=== PATIENT | female | born 1965 | race Caucasian/White ===

== ENCOUNTER 2020-07-22 20:05 | Inpatient (IN) | payer MEDICARE, MEDICAID ==
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
[2020-07-22] MEDS ORDERED: LORazepam 1 MG TAB PO STA (22:06)
[2020-07-22 22:21] LABS: Amphetamine Screen,Urine Not Detected (NotDetected); Barbiturate Screen,Urine Not Detected (NotDetected); Benzodiazepines Screen,Urine Detected (NotDetected); Cocaine Screen,Urine Not Detected (NotDetected); Methadone Screen, Urine Not Detected (NotDetected); Opiate Screen,Urine Detected (NotDetected); Oxycodone Screen, Urine Not Detected (NotDetected); Phencyclidine Screen,Urine Not Detected (NotDetected); Tricyclic Antidepressant,Urine Not Detected (NotDetected); Urn Cannabinoid Scrn Not Detected (NotDetected)
--- NOTE | 2020-07-23 01:01 | XR ---
EXAM: XR Right Wrist Complete, 3 or More Views CLINICAL HISTORY: ITS.REASON XR Reason: injury TECHNIQUE: Frontal, lateral and oblique views of the right wrist. COMPARISON: No relevant prior studies available. FINDINGS: Bones/joints: There is a comminuted, impacted fracture of the metaphysis of the distal right radius with 45 dorsal tilt of the articular surface. There is a mildly displaced ulnar styloid process fracture. Mild narrowing and osteophytosis of the first carpometacarpal joint consistent with osteoarthritic changes. No dislocation. Soft tissues: Soft tissue swelling surrounding the wrist. No radiopaque foreign body. IMPRESSION: 1. There is a comminuted and impacted fracture of the metaphysis of the distal right radius with 45 dorsal tilt of the articular surface. 2. There is a mildly displaced ulnar styloid process fracture.
[2020-07-23] MEDS ORDERED: MAG HYDROX/AL HYDROX/SIMETH 30 ML CUP PO PRN (02:56)
[2020-07-23] MEDS ORDERED: ZIPRASIDONE 20 MG VIAL IM PRN (02:56)
[2020-07-23] MEDS ORDERED: MAGNESIUM HYDROXIDE 2,400 MG/10 ML CUP PO PRN (02:56)
[2020-07-23] MEDS ORDERED: LORazepam 2 MG/ML INJ IM PRN (02:58)
[2020-07-23] MEDS: NICOTINE 14MG/24HR PATCH TRANSDERM SCH (03:42)
[2020-07-23] MEDS: LORazepam 1 MG TAB PO PRN ×2 (03:42→09:42)
[2020-07-23] MEDS: HYDROcodone/APAP 7.5-325MG 1 EACH TAB PO PRN ×3 (04:08→17:34)
--- NOTE | 2020-07-23 05:38 | P.PN ---
Progress Note - Text Progress Note Date: 07/23/20 patient was given ativan and sleeping at this time
[2020-07-23] MEDS: ACETAMINOPHEN TAB 325 MG TAB PO PRN ×2 (06:40→16:16)
[2020-07-23] MEDS: PREGABALIN 75 MG CAP PO SCH ×2 (08:06→21:12)
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
[2020-07-23 16:05] VITALS: BMI 25.4
[2020-07-23] MEDS: clonazePAM 0.5 MG TAB PO SCH ×2 (16:16→21:12)
[2020-07-23] MEDS ORDERED: MIRTAZAPINE 15 MG TAB PO SCH (21:00)
[2020-07-24] MEDS: HYDROcodone/APAP 7.5-325MG 1 EACH TAB PO PRN ×3 (04:34→21:15)
[2020-07-24 07:32] LABS: HCT 51.8 % (34.0-46.0); HGB 16.2 gm/dL (11.4-16.0); MCH 30.6 pg (25.0-35.0); MCHC 31.2 g/dL (31.0-37.0); MCV 98.1 fL (80.0-100.0); Platelet Count 294 k/uL (150-450); RBC 5.29 m/uL (3.80-5.40); RDW 12.5 % (11.5-15.5); WBC 6.5 k/uL (3.8-10.6)
[2020-07-24 07:44] LABS: ALT 16 U/L (4-34); AST 27 U/L (14-36); African American GFR (CKD) >90 (>60 ml/min/1.73 sqM); Albumin 4.3 g/dL (3.5-5.0); Alkaline Phosphatase 62 U/L (38-126); Anion Gap 5 mmol/L; Blood Urea Nitrogen 11 mg/dL (7-17); Calcium 9.7 mg/dL (8.4-10.2); Carbon Dioxide 26 mmol/L (22-30); Chloride 108 mmol/L (98-107); Cholesterol 175 mg/dL (<200); Glucose 100 mg/dL (74-99); HDL Cholesterol 56 mg/dL (40-60); LDL Cholesterol,Calculated 90 mg/dL (0-99); Non-African American GFR(CKD) >90 (>60 ml/min/1.73 sqM); Potassium 4.5 mmol/L (3.5-5.1); Sodium 139 mmol/L (137-145); Total Bilirubin 0.5 mg/dL (0.2-1.3); Triglycerides 145 mg/dL (<150)
[2020-07-24] MEDS ORDERED: hydrOXYzine HCL 25 MG TAB PO PRN (09:28)
[2020-07-24] MEDS: PREGABALIN 75 MG CAP PO SCH ×2 (09:35→21:15)
[2020-07-24] MEDS: NICOTINE 14MG/24HR PATCH TRANSDERM SCH (09:35)
[2020-07-24] MEDS: clonazePAM 0.5 MG TAB PO SCH ×3 (09:35→21:15)
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
[2020-07-24 10:40] LABS: Basophils # (M) 0.07 k/uL (0-0.2); Eosinophils # (M) 0.26 k/uL (0-0.7); Lymphocytes # (M) 2.54 k/uL (1.0-4.8); Monocytes # (M) 0.72 k/uL (0-1.0); Neutrophils # (M) 2.93 k/uL (1.3-7.7); Neutrophils % (M) 45 %; Nucleated Red Blood Cells 0 /100 WBC (0-0); Total Cells Counted 100
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
[2020-07-24 13:48] LABS: Hemoglobin A1C 5.1 % (4.0-6.0)
[2020-07-24] MEDS: ACETAMINOPHEN TAB 325 MG TAB PO PRN (16:42)
[2020-07-24 18:53] LABS: Appearance,Urine Clear (Clear); Bilirubin,Urine Negative (Negative); Blood,Urine Negative (Negative); Color,Urine Colorless; Glucose,Urine (UA) Negative (Negative); Ketones,Urine Negative (Negative); Leukocyte Esterase,Urine Negative (Negative); Nitrite,Urine Negative (Negative); Protein,Urine Negative (Negative); Specific Gravity,Urine 1.003 (1.001-1.035); Urobilinogen,Urine <2.0 mg/dL (<2.0)
[2020-07-24] MEDS: MIRTAZAPINE 15 MG TAB PO SCH (21:15)
[2020-07-24] MEDS: PROPRANOLOL 10 MG TAB PO SCH (22:06)
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
[2020-07-25] MEDS: NICOTINE 14MG/24HR PATCH TRANSDERM SCH (08:49)
[2020-07-25] MEDS: PROPRANOLOL 10 MG TAB PO SCH ×2 (08:49→21:26)
[2020-07-25] MEDS: clonazePAM 0.5 MG TAB PO SCH ×3 (08:49→21:26)
[2020-07-25] MEDS: PREGABALIN 75 MG CAP PO SCH ×2 (08:49→21:26)
[2020-07-25] MEDS: HYDROcodone/APAP 7.5-325MG 1 EACH TAB PO PRN ×2 (08:51→18:20)
[2020-07-25] MEDS: ACETAMINOPHEN TAB 325 MG TAB PO PRN (13:54)
--- NOTE | 2020-07-25 17:08 | PN ---
PROGRESS NOTE DATE OF SERVICE: 07/25/2020 CHIEF COMPLAINT: The patient was admitted on petition due to her being verbally aggressive and showing risk of harm to family. INTERVAL HISTORY: Patient has been doing fair. She had a quiet day yesterday. She comes out in the day area. She wanders about. She does not interact too much with others. She did not attend any groups yesterday. She slept fairly well last night. Today she has been up. She continues the same. It is noted that her p.o. intake has been down. The patient herself expressed concern about that and wondered about getting more Ensure at her meals that she gets 1 Ensure with each meal. She is being followed by the dietitian. When I reviewed her history, the patient was quite adamant about the idea that most everything that had been documented is not accurate. She insisted that she did not pose a threat to family. She noted the information on the petition was inaccurate or false. She talked some about some family struggles that she has had. Her mother apparently just recently. She feels that her sister was not very attentive to mother's needs and that was distressing her. She said that overall she felt her medications were helping. She was hoping to be discharged soon. MENTAL STATUS: Patient sat without restlessness. She gave fair eye contact. She answered questions with brief responses. She did not say a lot. Her affect was blunted. Her mood reserved. She did respond a little to humor. She did not appear to be significantly distressed. There was no clear indication of thought disorder, though she was very disconnected from the history that is documented. She voiced no thoughts of harm. She was oriented to circumstances and surroundings. ASSESSMENT: I will continue the current diagnosis and treatment plan. I will reduce Klonopin to 0.5 mg twice a day. It is noted that Klonopin was initiated for withdrawal symptoms, so I would look towards tapering her off Klonopin altogether. I briefly reviewed medication issues with the patient, though she did not pay too much attention to the conversation. She had no specific complaints related to her medicines and did make a comment that she felt Remeron was helpful at least "some of the time." We will focus on stabilization and discharge planning. MMODL / IJN: [id number] /
[2020-07-25] MEDS: MIRTAZAPINE 15 MG TAB PO SCH (21:26)
[2020-07-26 07:12] VITALS: RESP 16
[2020-07-26] MEDS: clonazePAM 0.5 MG TAB PO SCH (09:18)
[2020-07-26] MEDS: NICOTINE 14MG/24HR PATCH TRANSDERM SCH (09:18)
[2020-07-26] MEDS: PREGABALIN 75 MG CAP PO SCH ×2 (09:18→21:15)
[2020-07-26] MEDS: PROPRANOLOL 10 MG TAB PO SCH (09:19)
[2020-07-26] MEDS: IBUPROFEN 200 MG TAB PO SCH ×4 (11:17→23:19)
[2020-07-26] MEDS: ACETAMINOPHEN TAB 325 MG TAB PO PRN ×2 (13:38→16:26)
--- NOTE | 2020-07-26 14:32 | PN ---
PROGRESS NOTE DATE OF SERVICE: 07/26/2020 CHIEF COMPLAINT: The patient was admitted on petition due to her being verbally aggressive and showing risk of harm to family. INTERVAL HISTORY: The patient has been doing fair. She had a quiet day yesterday. She comes out in the day area. She attended some groups yesterday. She had difficulty engaging in one group. However, in the morning group she was noted to actively participate in the group and was able to share some significant concerns and feelings. She attended group this morning and was noted to be sad and guarded, though appropriate in her interactions. Her CIWA scores have been low with her latest at noon today of 4. When I talked to her today she noted that her mood is improved. She has not had any significant problems with the reduction in Klonopin. She did note some restless legs last evening, though it did not seem to be a significant problem for her. She was having complaints about right wrist pain. She noted numbness in her fingers. She does have some swelling. She was not wanting to wear the brace that was provided. She said it seemed to aggravate the pain. She did use some ice yesterday which she said helped some. She felt that the medications were helping. She feels that the Remeron she took last night does help with sleep. She tolerates her psychotropic medications. MENTAL STATUS: Patient gave fairly good eye contact. She was a little restless. She answered questions appropriately. Her thoughts were clear and coherent. She was somewhat interactive. Her affect was a little constricted though not significantly so. Her mood was reserved, though not down or depressed. She had a friendly manner. She did not appear distressed. There was no indication of thought disorder. She voiced no thoughts of harm. She was oriented and alert. ASSESSMENT: I will continue the current diagnosis and treatment plan. I will start the patient on Advil 200 mg 3 times a day for her right wrist pain and swelling. I will reduce her [place]ley to 5 mg q.6 hours p.r.n. in anticipation of discontinuing Wadley altogether. Klonopin will be reduced to 0.5 mg daily with one dose today and one dose tomorrow, then to be discontinued. I discussed discharge planning issues. We will focus on stabilization and discharge planning. Patient appears to be making progress. MMODL / IJN: [id number] /
[2020-07-26] MEDS ORDERED: HYDROcodone/APAP 7.5-325MG 1 EACH TAB PO SCH (21:00)
[2020-07-26] MEDS: MIRTAZAPINE 15 MG TAB PO SCH (21:15)
[2020-07-26] MEDS: HYDROcodone/APAP 5-325MG 1 EACH TAB PO PRN (21:16)
[2020-07-27] MEDS ORDERED: clonazePAM 0.5 MG TAB PO SCH (09:00)
[2020-07-27] MEDS ORDERED: clonazePAM 0.5 MG TAB PO ONE (09:00)
[2020-07-27] MEDS: IBUPROFEN 200 MG TAB PO SCH (09:44)
[2020-07-27] MEDS: NICOTINE 14MG/24HR PATCH TRANSDERM SCH (09:46)
[2020-07-27] MEDS: PREGABALIN 75 MG CAP PO SCH (09:46)
[2020-07-27] MEDS: HYDROcodone/APAP 5-325MG 1 EACH TAB PO PRN (09:47)
[2020-07-27 09:51] VITALS: BP 134/74; PULSE 104
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
[2020-07-27 14:09] VITALS: TEMP 97.7
== END 2020-07-27 14:28 | disposition home or self-care (01) | DRG 880 ==
LOC: EC 20:05 → 3MHU 07-23 02:37
PROVIDERS: ADMIT Psychiatry & Neurology Psychiatry; ATTEND Psychiatry & Neurology Psychiatry
DX: F41.9 Anxiety disorder, unspecified (principal); F13.239 Sedative, hypnotic or anxiolytic dependence with withdrawal, unspecified; F11.20 Opioid dependence, uncomplicated; F10.10 Alcohol abuse, uncomplicated; I10 Essential (primary) hypertension; G25.81 Restless legs syndrome; G89.29 Other chronic pain; M54.5 Low back pain; S52.501D Unspecified fracture of the lower end of right radius, subsequent encounter for closed fracture with routine healing; S52.611D Displaced fracture of right ulna styloid process, subsequent encounter for closed fracture with routine healing; F17.210 Nicotine dependence, cigarettes, uncomplicated; Z71.6 Tobacco abuse counseling; Z79.899 Other long term (current) drug therapy; V49.9XXD Car occupant (driver) (passenger) injured in unspecified traffic accident, subsequent encounter; Y92.410 Unspecified street and highway as the place of occurrence of the external cause
CPT/HCPCS: 80053; 80061; 80306; 81003; 82075; 83036; 84443; 85025; 99285

== ENCOUNTER 2020-08-17 01:24 | Inpatient (IN) | payer MEDICARE, MEDICAID ==
[2020-08-17 02:15] LABS: Appearance,Urine Clear (Clear); Bilirubin,Urine Negative (Negative); Blood,Urine Negative (Negative); Color,Urine Yellow; Glucose,Urine (UA) Negative (Negative); Ketones,Urine Negative (Negative); Leukocyte Esterase,Urine Negative (Negative); Nitrite,Urine Negative (Negative); PH, Urine 7.5 (5.0-8.0); Protein,Urine Negative (Negative); Specific Gravity,Urine 1.008 (1.001-1.035); Urobilinogen,Urine <2.0 mg/dL (<2.0)
[2020-08-17 02:55] LABS: Amphetamine Screen,Urine Not Detected (NotDetected); Barbiturate Screen,Urine Not Detected (NotDetected); Benzodiazepines Screen,Urine Detected (NotDetected); Cocaine Screen,Urine Not Detected (NotDetected); Methadone Screen, Urine Not Detected (NotDetected); Opiate Screen,Urine Not Detected (NotDetected); Oxycodone Screen, Urine Not Detected (NotDetected); Phencyclidine Screen,Urine Not Detected (NotDetected); Tricyclic Antidepressant,Urine Not Detected (NotDetected); Urn Cannabinoid Scrn Not Detected (NotDetected)
[2020-08-17] MEDS ORDERED: LORazepam 1 MG TAB PO STA (04:51)
[2020-08-17] MEDS ORDERED: MAG HYDROX/AL HYDROX/SIMETH 30 ML CUP PO PRN (06:16)
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
[2020-08-17] MEDS ORDERED: haloperidoL 5 MG TAB PO PRN (09:00)
[2020-08-17] MEDS ORDERED: HALOPERIDOL LACTATE 5 MG/ML 1 ML VIAL IM PRN (09:00)
[2020-08-17] MEDS: NICOTINE 14MG/24HR PATCH TRANSDERM SCH ×2 (09:05→09:52)
[2020-08-17] MEDS: PREGABALIN 100 MG CAP PO SCH ×2 (09:51→20:18)
[2020-08-17] MEDS: LORazepam 1 MG TAB PO PRN ×2 (09:51→15:44)
--- NOTE | 2020-08-17 12:15 | P.HP ---
Psychiatric H&P - . H&P Date: 08/17/20 History & Physical: IDENTIFYING DATA: She is a 55-year-old female admitted to the psychiatric unit involuntarily. A police commissioner completed the Petition describing impariment in sleep and appetite as well as agitation and aggressive behavior. HISTORY OF PRESENT ILLNESS: We discharged her on 07/27/2020 with the diagnoses an unspecified psychotic disorder. According to information obtained by the EPS nurse she was admitted to [facility] the week after discharge. Her and her sister complained that the patient's condition is deteriorating. She is not been compliant with prescribed psychotropic medication and is not caring for self. The police commissioner who brought her to the ED he reported that he had been called to the home several times during by her family because of her aggressive behavior and agitation. She was acutely distressed and unable to provide a coherent history. She perseverated about being anxious and needed a "higher dose" of Valium. She alleged that she had slept for 14 days and has not had anything 8 and several days. She complained that she felt "frightened for my life" during the entire time at [facility]. I wasn't really reach either her or her sister by telephone to obtain collateral information. PAST PSYCHIATRIC HISTORY: This is her 4th admission to our unit. We discharge her on 07/27/2020 with the diagnoses of unspecified anxiety disorder, benzodia zepine use disorder, opiate use disorder, tobacco use disorder and alcohol abuse. Her only psychotropic medication at discharge was Remeron [address] Naik was her outpatient psychiatrist since September 2014 until he left the [facility] practice this year. He consistently diagnosed her with a schizoaffective disorder depressive type, and a generalized anxiety disorder. He treated her consistently with Haldol 5 mg twice a day and Valium in doses ranging from 20-25 mg daily. their last [id number] appointment was in October 2019 and he prescribed Cogentin 1 mg twice a day, Haldol 5 mg twice a day, Celexa 10 mg daily and Valium 5 mg in the morning 5 mg at noon and 5 mg at dinnertime. I reviewed her controlled substance history available through [facility]. Dr. Alex has consistently prescribed Valium on the average of 25 mg per day. She filled her last prescription on 07/06/2020. PAST MEDICAL HISTORY: According to the medical record she has a history of hypertension and chronic back pain. She has been chronically prescribed Lyrica 75 mg twice a day and [place] 7.5-325 3 times a day for the chronic back pain. ALLERGIES: NO KNOWN DRUG ALLERGIES SUBSTANCE USE HISTORY: I was unable to obtain a substance use history during our evaluation today. According to record the family has complained that she drank wine addition taken her prescriptions of [place] and Valium. However the patient minimized her alcohol use. She denied that she had misuse the prescriptions for Valium or no,. FAMILY PSYCHIATRIC/SUBSTANCE USE HISTORY: Her father had a history of alcohol use disorder LEGAL HISTORY: Denied SOCIAL HISTORY: Her parents are . She has 1 sister and 3 living brothers. She lives with her was home she has been for 3 years. She is unemployed and receives Social Security disability. MENTAL STATUS EXAM: She presented as a thin and disheveled 55-year-old female looked much older than her stated age. Her hair was long unkempt. She rocked back and forth in her chair. She had no prominent physical abnormalities. She did not make eye contact and did not appear to be responding to internal stimuli She had a distressed facial expression. She is alert and oriented to person. She was restless but not agitated and displayed no abnormal involuntary movements. Her speech was perseverative, spontaneous, soft and garbled where he was almost inaudible. She was markedly anxious and distressed. She expressed feelings of hopelessness, helplessness and worthlessness but did not was clear suicidal ideation or wishes. She is obsessed over her experiences in the hospital but did not express clear paranoid ideation about her sister or her . Her thinking was very concrete and associations were not fully organized. She was internally preoccupied but did not appear to be responding to internal stimuli. She denied experiencing auditory hallucinations.. STRENGTHS: Good physical health, supportive family, stable housing, stable income WEAKNESSES: Chronic persistent mental illness, poor compliance with treatment IMPRESSION: She is a 55-year-old female admitted to psychiatric unit involuntarily with a marked decline in functioning, agitation, impaired sleep and lack of appetite. This is her third hospitalization in the last 30 days. Family reports that she does not continue with her medications after her discharges. She was restless, unkept, anxious and perseverative. She was focused on obtaining prescriptions for Valium. Her presentation may be related to benzodiazepine withdrawal. however I suspect that she also has a psychotic disorder. Her long-term outpatient psychiatrist had treated for several years for a psychotic disorder. She should best be treated inpatient basis with combination of psychopharmacology and multimodal therapy. PRINCIPLE DIAGNOSIS: Schizoaffective disorder depressed type, generalized anxiety disorder, rule out benzodiazepine use disorder, chronic back pain RECOMMENDATION: Admitted to the psychiatric unit. Proceed with involuntary hospitalization. Consult medicine for initial physical exam and medical history. template layout worker completed a psychosocial assessment coordinate discharge and aftercare. Obtain collateral information from family. Restart Haldol 2 mg twice a day and titrated according to clinical response and tolerance. Restart mirtazapine 45 mg at bedtime. Increase Lyrica 200 mg twice a day for the treatment of anxiety symptoms. Haldol and Ativan when necessary for agitation or aggression. Encourage participation in therapeutic groups and activities. Evaluate clinical status response to treatment daily basis. Allergies Allergy/AdvReac Type Severity Reaction Status Date / Time No Known Allergies Allergy Verified 08/17/20 07:26 Vital Signs Temp 98.0 F 08/17/20 07:12 Pulse 92 08/17/20 07:12 Resp 18 08/17/20 07:12 BP 127/80 08/17/20 07:12 Pulse Ox 95 08/17/20 01:25 Intake & Output 08/16/20 08/17/20 08/17/20 18:59 06:59 18:59 Weight 58.967 kg 58.967 kg Laboratory Last Values Urine Color Yellow 08/17/20 02:03 Urine Appearance Clear (Clear) 08/17/20 02:03 Urine pH 7.5 (5.0-8.0) 08/17/20 02:03 Ur Specific [place] 1.008 (1.001-1.035) 08/17/20 02:03 Urine Protein Negative (Negative) 08/17/20 02:03 Urine Glucose (UA) Negative (Negative) 08/17/20 02:03 Urine Ketones Negative (Negative) 08/17/20 02:03 Urine Blood Negative (Negative) 08/17/20 02:03 Urine Nitrite Negative (Negative) 08/17/20 02:03 Urine Bilirubin Negative (Negative) 08/17/20 02:03 Urine Urobilinogen <2.0 mg/dL (<2.0) 08/17/20 02:03 Ur Leukocyte Esterase Negative (Negative) 08/17/20 02:03 Urine Opiates Screen Not Detected (NotDetected) 08/17/20 02:03 Ur Oxycodone Screen Not Detected (NotDetected) 08/17/20 02:03 Urine Methadone Screen Not Detected (NotDetected) 08/17/20 02:03 Ur Propoxyphene Screen Not Detected (NotDetected) 08/17/20 02:03 Ur Barbiturates Screen Not Detected (NotDetected) 08/17/20 02:03 U Tricyclic Antidepress Not Detected (NotDetected) 08/17/20 02:03 Ur Phencyclidine Scrn Not Detected (NotDetected) 08/17/20 02:03 Ur Amphetamines Screen Not Detected (NotDetected) 08/17/20 02:03 U Methamphetamines Scrn Not Detected (NotDetected) 08/17/20 02:03 U Benzodiazepines Scrn Detected (NotDetected) H 08/17/20 02:03 Urine Cocaine Screen Not Detected (NotDetected) 08/17/20 02:03 U Marijuana (THC) Screen Not Detected (NotDetected) 08/17/20 02:03 Coronavirus (PCR) Not Detected (Not Detectd) 08/17/20 04:52 08/17/20 11:44
[2020-08-17 15:59] VITALS: BMI 22.3
[2020-08-17] MEDS: MIRTAZAPINE 15 MG TAB PO SCH (20:17)
[2020-08-17] MEDS: ACETAMINOPHEN TAB 325 MG TAB PO PRN (20:19)
[2020-08-17] MEDS ORDERED: IPRATROPIUM-ALBUTEROL 3 ML NEB INHALATION PRN (22:51)
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
[2020-08-18] MEDS: ACETAMINOPHEN TAB 325 MG TAB PO PRN ×3 (06:10→20:56)
[2020-08-18] MEDS: guaiFENesin-DM 100-10MG/5ML 10 ML CUP PO PRN ×2 (06:27→15:47)
[2020-08-18] MEDS: PREGABALIN 100 MG CAP PO SCH ×3 (08:01→20:55)
[2020-08-18] MEDS: NICOTINE 14MG/24HR PATCH TRANSDERM SCH (08:01)
--- NOTE | 2020-08-18 10:53 | P.PN ---
Progress Note - Text Progress Note Date: 08/18/20 Clinical Problems: Schizoaffective disorder depressed type, generalized anxiety disorder, protracted benzodiazepine withdrawal, chronic back pain Interim history: I reviewed the medical record, interviewed the patient and discussed her treatment and treatment plan during team meeting. She was much more focused and organized than on admission. She feels that she is doing better because she was able to sleep last night. During much of the interview she perseverated about her . She has no understanding why he called the Chief Crna's Department or he had her admitted to [facility] or readmitted to this unit. During the conversation she revealed that she cut the television cord before. She complained that she does not watch TV, doesn't like television and doesn't like the television programs that her watches. She asked him to turn off the television. When he di dn't she "pollitely" cut the television cord. She perseverated on being anxious and being unable to find a physician who is willing to prescribe her Valium. We reviewed her psychotropic medications. She is comfortable with continuing Haldol but asked not to restart Cogentin (she believes that Cogentin causes kidney failure). I explained that Lyrica is affective in treating anxiety and anxiety symptoms. She overtly agreed to my recommendation to increase the dose of Lyrica to treat her anxiety rather than re-start a benzodiazepine. Mental status exam: She presented as a thin tremulous elderly woman who looks looks much older than her stated age. She made eye contact and attended to the interview. She had restless movements of the legs and tremors of her fingers. Her speech was spontaneous with normal rate and rhythm. Her affect was anxious and labile. She denied suicidal ideation, wish homicidal ideation. He expressed feelings of helplessness and worthlessness but denied feeling hopeless. She ruminated about the psychiatric hospitalizations, her experiences at [facility] and her . She did not express ideas reference, or delusions. Her thinking was concrete but her associations were goal directed. She denied hallucinations and did not appear to be responding to internal stimuli. Assessment: She is much less disorganized, anxious and confused than on admission. She is denying side effects to her current medications but remains preoccupied with receiving Valium for complaints of subjective anxiety. Plan: Continue inpatient treatment. Probate hearing pending. Continue Haldol 2 mg twice a day and titrated according to clinical response and tolerance. Consider transitioning to Haldol decanoate before discharge. Continue mirtazapine 45 mg at bedtime for treatment of anxiety and depression. Increase Lyrica to 100 mg 3 times a day for treatment of his anxiety symptoms and titrated according to clinical response and tolerance. Decrease when necessary Ativan to .5 mg 3 times a day. Continue Haldol by mouth/IM for agitation or aggression. Encourage participation in therapeutic groups and activities. Evaluate clinical status response to treatment daily basis.
[2020-08-18 11:09] LABS: ALT 16 U/L (4-34); AST 20 U/L (14-36); African American GFR (CKD) >90 (>60 ml/min/1.73 sqM); Albumin 4.1 g/dL (3.5-5.0); Alkaline Phosphatase 60 U/L (38-126); Anion Gap 3 mmol/L; Basophils # (A) 0.1 k/uL (0-0.2); Basophils % (A) 1 %; Blood Urea Nitrogen 12 mg/dL (7-17); Calcium 9.7 mg/dL (8.4-10.2); Carbon Dioxide 34 mmol/L (22-30); Chloride 96 mmol/L (98-107); Eosinophils # (A) 0.2 k/uL (0-0.7); Eosinophils % (A) 2 %; Glucose 84 mg/dL (74-99); HCT 44.6 % (34.0-46.0); HGB 14.4 gm/dL (11.4-16.0); Lymphocytes # (A) 2.4 k/uL (1.0-4.8); Lymphocytes % (A) 32 %; MCH 30.7 pg (25.0-35.0); MCHC 32.3 g/dL (31.0-37.0); Mean Platelet Volume 7.2; Monocytes # (A) 0.8 k/uL (0-1.0); Monocytes % (A) 11 %; Neutrophils # (A) 3.8 k/uL (1.3-7.7); Neutrophils % (A) 51 %; Non-African American GFR(CKD) >90 (>60 ml/min/1.73 sqM); Platelet Count 412 k/uL (150-450); Potassium 4.6 mmol/L (3.5-5.1); RDW 12.4 % (11.5-15.5); Sodium 133 mmol/L (137-145); Total Bilirubin 0.3 mg/dL (0.2-1.3); Total Protein 6.4 g/dL (6.3-8.2); WBC 7.5 k/uL (3.8-10.6)
[2020-08-18 11:49] LABS: Cholesterol 160 mg/dL (<200); HDL Cholesterol 56 mg/dL (40-60); LDL Cholesterol,Calculated 79 mg/dL (0-99); Triglycerides 125 mg/dL (<150)
[2020-08-18 17:04] LABS: Hemoglobin A1C 5.3 % (4.0-6.0)
[2020-08-18] MEDS: MIRTAZAPINE 15 MG TAB PO SCH (20:55)
[2020-08-19] MEDS: LORazepam 0.5 MG TAB PO PRN ×3 (01:56→19:56)
[2020-08-19] MEDS: PREGABALIN 100 MG CAP PO SCH ×3 (07:55→19:56)
[2020-08-19] MEDS: NICOTINE 14MG/24HR PATCH TRANSDERM SCH (07:55)
--- NOTE | 2020-08-19 11:42 | P.PN ---
Progress Note - Text Progress Note Date: 08/19/20 Clinical Problems: Schizoaffective disorder depressed type, generalized anxiety disorder, protracted benzodiazepine withdrawal, chronic back pain Interim history: I reviewed the medical record, interviewed the patient and discussed her treatment and treatment plan during team meeting. I approached her in hallway. She was restless and made the statement that she did not know she was "entitled" to Ativan. She stated that she feels anxious because she is scheduled to meet with an radio engineer today. She associated meeting with the radio engineer with incarceration stating that she does not want to go to longterm. She appeared calm when I explained that the appointment was to discuss her hospitalization and assured her that she will not go to longterm. She remains unable to explain the circumstances that led to this hospitalization. Today, she remembers telling her sister and telephone that she believed that her was trying to kill her. She became distressed because her sister began to "yell at me" on the telephone. She feels that the increased dose of Lyrica does help reduce her anxiety but she continues to perseverate about Valium and in need for medication for anxiety. She denied side effects to the initial dose of Haldol. We discussed treatment options and she was open to transitioning from oral Haldol to Haldol Decanoate. Mental status exam: She presented as a thin tremulous elderly woman who looks looks much older than her stated age. She made eye contact and attended to the interview. She was restless and fidgety. Her speech was spontaneous with normal rate and rhythm. Her affect was anxious. She denied suicidal ideation, wish homicidal ideation. He denied feeling helplessness and worthlessness. She ruminated about her admission to [facility]. She did not express ideas reference, or delusions. Her thinking was concrete but her associations were goal directed. She denied hallucinations and did not appear to be responding to internal stimuli. Assessment: She is moderately mentally ill and moderately improved from admission. She is denying side effects to her current medications but remains preoccupied with receiving Valium for complaints of subjective anxiety. Plan: Continue inpatient treatment. Probate hearing pending. Increase Haldol to 4 mg twice a day and titrated according to clinical response and tolerance. Consider transitioning to Haldol decanoate before discharge. Continue mirtazapine 45 mg at bedtime for treatment of anxiety and depression. Continue Lyrica 100 mg 3 times a day for treatment of his anxiety symptoms and titrated according to clinical response and tolerance. Continue when necessary Ativan to .5 mg 3 times a day. Continue Haldol by mouth/IM for agitation or aggression. Encourage participation in therapeutic groups and activities. Evaluate clinical status response to treatment daily basis.
[2020-08-19] MEDS: ACETAMINOPHEN TAB 325 MG TAB PO PRN (16:03)
[2020-08-19] MEDS: guaiFENesin-DM 100-10MG/5ML 10 ML CUP PO PRN (16:47)
[2020-08-19] MEDS: MAGNESIUM HYDROXIDE 2,400 MG/10 ML CUP PO PRN (18:31)
[2020-08-19] MEDS: MIRTAZAPINE 15 MG TAB PO SCH (19:56)
[2020-08-20] MEDS: NICOTINE 14MG/24HR PATCH TRANSDERM SCH (08:28)
[2020-08-20] MEDS: PREGABALIN 100 MG CAP PO SCH ×2 (08:28→20:09)
[2020-08-20] MEDS: MAGNESIUM HYDROXIDE 2,400 MG/10 ML CUP PO PRN (08:30)
[2020-08-20] MEDS: ACETAMINOPHEN TAB 325 MG TAB PO PRN ×2 (08:51→20:08)
[2020-08-20] MEDS: LORazepam 0.5 MG TAB PO SCH ×2 (09:20→20:09)
[2020-08-20] MEDS ORDERED: HALOPERIDOL DECANOATE 50 MG/ML 1 ML VIAL IM SCH (11:30)
--- NOTE | 2020-08-20 11:37 | P.PN ---
Progress Note - Text Progress Note Date: 08/20/20 Clinical Problems: Schizoaffective disorder depressed type, generalized anxiety disorder, protracted benzodiazepine withdrawal, chronic back pain Interim history: I reviewed the medical record, interviewed the patient and discussed her treatment and treatment plan during team meeting. She complained of continued subjective anxiety. She feels anxious being on the unit, hearing loud noises, speaking with the people or having change in her treatment. She was anxious about meeting with her state attorney. After the deferral meeting she worried whether she made the correct decision. She expressed the unfounded belief that if she did not to follow through with treatment that she could be placed in a "half-way." She remains preoccupied about getting a prescription for a "nerve pill" and is worried that the psychiatrists that [facility] were not prescribed currently "nerve pill". She continues to struggle no insight or understanding of the reason for this hospitalization and cannot explain why her had called the [facility]'s Department. Mental status exam: During the interview she displayed characteristic akathetic movements of her feet since we increased the dose of Haldol. Her speech was spontaneous with normal rate and rhythm. She was tremulous throughout the interview. Her affect was anxious. She denied suicidal ideation, wish homicidal ideation. He denied feeling helplessness and worthlessness. She again ruminated about her admission to [facility]. She did not express ideas reference, or delusions. Her thinking was very concrete but her associations were goal directed. She denied hallucinations and did not appear to be responding to internal stimuli. Assessment: She is experiencing increased akathisia with increased dose of Haldol. She continues complained of subjective anxiety and frequently requests when necessary doses of lorazepam. Plan: Continue inpatient treatment. Decrease Haldol to 2 mg twice a day and start Haldol Continue mirtazapine 45 mg at bedtime for treatment of anxiety and depression. Increase Lyrica to 200 mg twice a day for treatment of his anxiety symptoms and titrated according to clinical response and tolerance. Decrease when necessary Ativan to .5 mg twice daily. Begin Haldol decanoate 25 mg IM every 28 days. Continue Haldol by mouth/IM for agitation or aggression. Encourage participation in therapeutic groups and activities. Evaluate clinical status response to treatment daily basis.
[2020-08-20] MEDS: guaiFENesin-DM 100-10MG/5ML 10 ML CUP PO PRN (13:23)
[2020-08-20] MEDS: MIRTAZAPINE 15 MG TAB PO SCH (20:08)
[2020-08-21 06:53] VITALS: TEMP 97.6
[2020-08-21] MEDS: NICOTINE 14MG/24HR PATCH TRANSDERM SCH (08:25)
[2020-08-21] MEDS: LORazepam 0.5 MG TAB PO SCH (08:26)
[2020-08-21] MEDS: PREGABALIN 100 MG CAP PO SCH (08:27)
[2020-08-21] MEDS: ACETAMINOPHEN TAB 325 MG TAB PO PRN (08:27)
[2020-08-21 08:30] VITALS: BP 138/87; PULSE 108; RESP 20
--- NOTE | 2020-08-21 11:32 | P.DS ---
Providers Date of admission: 08/17/20 05:52 Attending physician: David Thompson MD Consults: 08/17/20 06:16 Consult Physician Routine Consulting Provider: Jose Fleming Consult Reason/Comments: H&P for mental health admission Do you want consulting provider notified?: Yes Primary care physician: Stated None - Discharge Diagnosis(es) (1) Schizoaffective disorder, depressive type Current Visit: Yes Status: Chronic Priority: Medium (2) Generalized anxiety disorder Current Visit: Yes Status: Chronic Priority: High (3) Chronic use of benzodiazepine for therapeutic purpose Current Visit: Yes Status: Chronic Priority: Medium Hospital Course: HISTORY: She is a 55-year-old female admitted to the psychiatric unit involuntarily. A financial aid officer completed the Petition describing impariment in sleep and appetite as well as agitation and aggressive behavior. We discharged her on 07/27/2020 with the diagnoses an unspecified psychotic disorder. According to information obtained by the EPS nurse she was admitted to [facility] the week after discharge. Her and her sister complained that the patient's condition is deteriorating. She is not been compliant with prescribed psychotropic medication and is not caring for self. The financial aid officer who brought her to the ED he reported that he had been called to the home several times during by her family because of her aggressive behavior and agitation. She was acutely distressed and unable to provide a coherent history. She perseverated about being anxious and needed a "higher dose" of Valium. She alleged that she had slept for 14 days and has not had anything 8 and several days. She complained that she felt "frightened for my life" during the entire time at [facility]. I wasn't really reach either her or her sister by telephone to obtain collateral information. This is her 4th admission to our unit. We discharge her on 07/27/2020 with the diagnoses of unspecified anxiety disorder, benzodiazepine use disorder, opiate use disorder, tobacco use disorder and alcohol abuse. Her only psychotropic medication at discharge was Remeron [address] Naik was her outpatient psychiatrist since September 2014 until he left the [facility] this year. He consistently diagnosed her with a schizoaffective disorder depressive type, and a generalized anxiety disorder. He treated her consistently with Haldol 5 mg twice a day and Valium in doses ranging from 20-25 mg daily. their last [id number] appointment was in October 2019 and he prescribed Cogentin 1 mg twice a day, Haldol 5 mg twice a day, Celexa 10 mg daily and Valium 5 mg in the morning 5 mg at noon and 5 mg at dinnertime. She has not been able to establish her with another psychiatrist. I reviewed her controlled substance history available through [facility]. Dr. Alex has consistently prescribed Valium on the average of 25 mg per day. She filled her last prescription on 07/06/2020. HOSPITAL COURSE: We admitted her to the psychiatric unit involuntarily and provided a comprehensive biopsychosocial assessment. She met with a court appointed insurance defense attorney and deferred the probate hearing. The pci security consultant final canoe inspector completed initial physical exam and medical history and diagnosed bronchitis and congestion and recommended symptomatic treatment with DuoNeb and Robitussin. Her Covid PCR was not detected. She was markedly distressed when she initially presented to the unit but eventually revealed that she was greatly distressed and felt abandoned by her psychiatrist who left the [facility]. She perseverated on her frightening experiences during a recent hospitalization at another psychiatric facility. She requested to resume the treatment prescribed by her former psychiatrist and she was most insistent on resuming Haldol. We increased her outpatient dose of mirtazapine to 45 mg at bedtime and treated her chronic and persistent anxiety complaints with Lyrica increasing the dose to 200 mg twice a day (she is prescribed Lyrica by her primary for the treatment of chronic pain complaints) and when necessary Xanax 0.5 mg twice a day. She was anxious and tremulous throughout most of the hospitalization. However she participated in therapeutic groups and activities. She posed no management problems and no episodes of behavioral his control. She agreed to transition from oral to long-acting Haldol Decanoate and she received to 50 mg IM on 08/20/2020. MENTAL STATUS ON DISCHARGE: She presented as a thin casually groomed elderly female who was pleasant on approach. She had very poor dentition. She made intermittent eye contact and attended to the interview. She had no prominent physical abnormalities. Her facial expression was calm and consistent with her mood. She had slight tremor of his hands. Her speech was spontaneous, perseverative but goal oriented and organized. Her affect was anxious but stable and appropriate. She denied suicidal ideation, wishes and homicidal ideation. She denied feeling hopeless, helpless or worthless. She ruminated about the loss of her former psychiatrist, her need for benzodiazepines and her chronic anxiety. She did not express ideas reference, paranoid ideation or delusions. Her thinking was very concrete and she showed poverty of thought content but did not express ideas reference, paranoid ideation or delusions. She denied hallucinations and did not appear to be responding to internal stimuli. DISPOSITION: She returned to her former address. Her next injection of Haldol Decanoate 50 mg is due on 09/17/2020. Her discharge medications included Ativan 0.5 mg twice a day, Haldol 2 mg by mouth twice a day (30 day supply), Lyrica 200 mg twice a day and Remeron 45 mg at bedtime. She has a follow-up appointment with [facility] on 08/24/2020 11:30 AM. Patient Condition at Discharge: Stable Plan - Discharge Summary Discharge Rx Participant: No New Discharge Prescriptions: New LORazepam [Ativan] 0.5 mg PO BID #60 tab haloperidoL [Haldol] 2 mg PO BID #60 tab Pregabalin [Lyrica] 200 mg PO BID #120 cap Mirtazapine [Remeron] 45 mg PO HS #90 tab Continue Ibuprofen [Advil] 600 mg PO TID PRN 30 Days tab PRN Reason: Pain Nicotine 14Mg/24Hr Patch [Habitrol] 1 patch TRANSDERM DAILY 14 Days patch Acetaminophen Tab [Tylenol] 650 mg PO Q4HR PRN tab PRN Reason: Pain/Discomfort Discontinued HYDROcodone/APAP 7.5-325MG [[place] 7.5-325] 1 tab PO TID Mirtazapine [Remeron] 30 mg PO HS 30 Days tab Pregabalin [Lyrica] 75 mg PO BID 30 Days cap Discharge Medication List Acetaminophen Tab [Tylenol] 650 mg PO Q4HR PRN tab 07/27/20 [Rx] Ibuprofen [Advil] 600 mg PO TID PRN 30 Days tab 07/27/20 [Rx] Nicotine 14Mg/24Hr Patch [Habitrol] 1 patch TRANSDERM DAILY 14 Days patch 07/27/20 [Rx] LORazepam [Ativan] 0.5 mg PO BID #60 tab 08/21/20 [Rx] Mirtazapine [Remeron] 45 mg PO HS #90 tab 08/21/20 [Rx] Pregabalin [Lyrica] 200 mg PO BID #120 cap 08/21/20 [Rx] haloperidoL [Haldol] 2 mg PO BID #60 tab 08/21/20 [Rx] Follow up Appointment(s)/Referral(s): [facility] [Outside] - 08/24/20 11:30 am (Intake appt by phone 08-24-20 @ 11:30 with Jojo) None,Stated [Primary Care Provider] - 1 Week Discharge Disposition: HOME SELF-CARE
== END 2020-08-21 12:44 | disposition home or self-care (01) | DRG 885 ==
LOC: EC 01:24 → 3MHU 05:52
PROVIDERS: ADMIT Psychiatry & Neurology Psychiatry; ATTEND Psychiatry & Neurology Psychiatry
DX: F25.1 Schizoaffective disorder, depressive type (principal); F13.239 Sedative, hypnotic or anxiolytic dependence with withdrawal, unspecified; I10 Essential (primary) hypertension; F41.1 Generalized anxiety disorder; F17.200 Nicotine dependence, unspecified, uncomplicated; G89.29 Other chronic pain; Z20.828 Contact with and (suspected) exposure to other viral communicable diseases; Z79.899 Other long term (current) drug therapy; Z91.14 Patient's other noncompliance with medication regimen; Z56.0 Unemployment, unspecified
CPT/HCPCS: 80053; 80061; 80306; 81003; 81025; 82075; 83036; 84443; 85025; 87635; 99285

== ENCOUNTER → 2020-12-25 | Outpatient (CLI) | payer MEDICARE, OTHER | END | disposition home or self-care (01) | LOC: LABWHC1 13:21 | PROVIDERS: ATTEND Nurse Practitioner | DX: Z20.822 Contact with and (suspected) exposure to COVID-19 (principal) | CPT/HCPCS: U0003; C9803; U0005 ==

== ENCOUNTER → 2021-01-21 | Outpatient (CLI) | payer OTHER ==
--- NOTE | 2021-01-21 22:41 | CT ---
EXAMINATION TYPE: CT wrist RT wo con DATE OF EXAM: 01/21/2021 COMPARISON: None HISTORY: Right wrist pain after injury. CT DLP: 143.3 mGycm Automated exposure control for dose reduction was used. Images were obtained from the mid radius to the distal metacarpals without contrast. There is old ununited impacted transverse fracture of the distal radial metaphysis. There is approxim ate 9 mm posterior displacement of the distal radial fragment on the sagittal images. There is some m ore proximal bridging callus formation. There is irregular lucent line through the callus seen on the coronal images. The carpal bones appear intact. The metacarpals are intact. There are no erosions. T here is old ununited ulnar styloid process fracture. IMPRESSION: Old ununited distal radius fracture. There is bridging callus formation more proximally but there is an apparent acute fracture line through the callus formation at could be a refracture. Old ulnar styl oid process fracture. No acute abnormality of the carpal bones.
== END | disposition home or self-care (01) ==
LOC: RADCTMAIN 16:34
PROVIDERS: ATTEND Orthopaedic Surgery
DX: S52.591A Other fractures of lower end of right radius, initial encounter for closed fracture (principal)

== ENCOUNTER → 2022-07-18 | Outpatient (CLI) | payer MEDICARE, OTHER ==
--- NOTE | 2022-07-19 09:18 | CTL ---
EXAMINATION TYPE: CT Low Dose Lung DATE OF EXAM ORDERED: 07/18/2022 HISTORY: Tobacco use. Lung cancer screening CT DLP: 55.[address] CTDI: 1.60 mGy Automated exposure control for dose reduction was used. SCREENING VISIT: Initial COMPARISON: None TECHNIQUE: Low dose computed tomography scan was performed through the chest at 1 mm thick sections a nd reconstructed images in multiple planes at 1 mm and [address] DIAGNOSTIC QUALITY: Satisfactory FINDINGS: LUNG NODULES: Left lower lobe 2.5 x 1.8 cm nodule with central lucency which may represent cavitation. Right upper lung 6 mm pulmonary nodule image 10 series 6. LUNGS: COPD: Severity: Centrilobular emphysema changes are seen in the lung apices. Fibrosis: Severity: None Lymph nodes: None Other findings: None RIGHT PLEURAL SPACE: Effusion: None Calcification: None Thickening: None Pneumothorax: None LEFT PLEURAL SPACE: Effusion: None Calcification: None Thickening: None Pneumothorax: None HEART: Heart Size: Normal Coronary Calcification: None Pericardial Effusion: None OTHER FINDINGS: Upper abdomen: None Bony thorax: None Supraclavicular region: None Other: None IMPRESSION: Left lower lobe pulmonary nodule measuring up to 2.5 cm. Central lucencies may represent cavitation. CT LUNG RAD AND CT CHEST RECOMMENDATION: Lung-Rad 4B or 4X Very Suspicious: Follow-up PET/CT and/or t issue sampling. S Modifier (other clinically significant findings): None
== END | disposition home or self-care (01) ==
LOC: RADCTMAIN 17:03
PROVIDERS: ATTEND Family Medicine
DX: Z12.2 Encounter for screening for malignant neoplasm of respiratory organs (principal); R91.1 Solitary pulmonary nodule; Z87.891 Personal history of nicotine dependence
CPT/HCPCS: 71271

== ENCOUNTER → 2022-08-26 | Outpatient (CLI) | payer MEDICARE, OTHER ==
--- NOTE | 2022-08-27 12:58 | PE ---
EXAMINATION TYPE: PET CT fusion skull to thigh DATE OF EXAM: 08/26/2022 CLINICAL INDICATION:Female, 57 years old with history of D02.22; TECHNIQUE: Following the intravenous administration of 9.97 mCi of F-18 FDG, whole body images are performed from the skull base to the midthigh. Images are reviewed on the computer in the coronal, a xial, and sagittal planes. Reconstructed rotating images are created on independent workstation and reviewed on the computer. A non-contrast CT is performed in conjunction with the PET scan. Glucose level 102 mg/dL COMPARISON: CT 07/18/2022, PET/CT None, FINDINGS: Mediastinal SUV mean is 1.2. Hepatic parenchyma SUV mean is 1.9. SKULL BASE AND NECK: No suspicious radiotracer activity. CHEST, MEDIASTINUM, AND HILAR REGION: * Left lower lobe nodule measuring 2.7 x 2.6 cm with max SUV 5.7 * Right upper lobe 5 mm pulmonary nodule with max SUV 0.8 which is likely under the sensitivity thre shold for PET/CT. There is a subtle radiotracer uptake in this region which does appear higher than b ackground. ABDOMEN AND PELVIS: No suspicious radiotracer activity. OSSEOUS STRUCTURES: No suspicious radiotracer activity. OTHER CT: Right subcentimeter thyroid nodules. Emphysema changes throughout the lungs. Mild atherosclerosis of the arterial vasculature. IMPRESSION: 1. Left lower lobe pulmonary nodule measuring 2.7 cm with increased FDG activity concerning for prim winter malignancy. Right upper lobe 5 mm pulmonary nodule with max SUV 0.8 which appears to extend out from adjacent pul monary parenchyma, surveillance is recommended and attention on follow-up imaging with CT should be p erformed.
== END | disposition home or self-care (01) ==
LOC: RADPETMAIN 13:53
PROVIDERS: ATTEND Family Medicine
DX: D02.22 Carcinoma in situ of left bronchus and lung (principal); R91.8 Other nonspecific abnormal finding of lung field
CPT/HCPCS: 78815; A9552

== ENCOUNTER 2022-10-13 10:36 | Day surgery (SDC) | payer MEDICARE, OTHER ==
[2022-10-11 16:16] VITALS: BMI 26.7
[~2022-10-13 10:36] MED LIST: LACTATED RINGERS 1,000 ML IV SCH; LIDOCAINE VISCOUS 300 MG/15 ML CUP MUCOUS MEM ONE; SODIUM CHLORIDE 0.9% 1,000 ML IV SCH
[2022-10-13] MEDS ORDERED: LACTATED RINGERS 1,000 ML IV ONE ×3 (11:05→14:10)
--- NOTE | 2022-10-13 11:59 | CT ---
EXAMINATION TYPE: CT Chest cierra Camara Protocol DATE OF EXAM: 10/13/2022 COMPARISON: PET fusion 08/26/2022 HISTORY: NAVIGATIONAL BRONCHOSCOPY 10/13/[address] of the chest was performed with lung and mediastinal window settings submitted. The la ck of contrast limits evaluation of the vascular, mediastinal and parenchymal structures including th e upper abdomen. LUNGS: Left lower lobe spiculated mass with areas of cavitation noted measuring 2.6 x 2.3 x 2.2 cm. 5 mm nodule right upper lobe is nonspecific. No additional nodules or masses seen. Mild upper lobe emp hysematous change. MEDIASTINUM/BRAVO: Thoracic aorta is of normal caliber with limited evaluation given lack of contrast . The heart is not enlarged. No evidence for mediastinal mass. No lymph nodes greater than 1cm. UPPER ABDOMEN: No significant abnormality is seen. OTHER: No significant other abnormality. IMPRESSION: 1. Left lower lobe spiculated mass with areas of cavitation noted measuring 2.6 x 2.3 x 2.2 cm. Find ings are felt to reflect malignancy until proven otherwise. No obvious adenopathy within the hilar or mediastinal regions.
[2022-10-13] MEDS ORDERED: NEOSTIGMINE 1 MG/ML 10 ML VIAL ONE (12:49)
[2022-10-13] MEDS ORDERED: DEXAMETHASONE SOD PHOS (MDV) 100 MG/10 ML VIAL ONE (12:49)
[2022-10-13] MEDS ORDERED: fentaNYL (PF) 50 MCG/ML 2 ML AMP ONE (12:49)
[2022-10-13] MEDS ORDERED: PROPOFOL 10 MG/ML 20 ML VIAL IV ONE (12:49)
[2022-10-13] MEDS ORDERED: ONDANSETRON 4 MG/2 ML VIAL ONE (12:49)
[2022-10-13] MEDS ORDERED: SUCCINYLCHOLINE CHLORIDE 200 MG/10 ML VIAL IV ONE (12:49)
[2022-10-13] MEDS ORDERED: LIDOCAINE 2% INJ 20 MG/ML (2 ML VIAL) ONE (12:49)
[2022-10-13] MEDS ORDERED: MIDAZOLAM 2 MG/2 ML VIAL ONE (12:49)
[2022-10-13] MEDS ORDERED: GLYCOPYRROLATE 0.2 MG/ML 2 ML VIAL ONE (12:49)
[2022-10-13] MEDS ORDERED: ROCURONIUM 10 MG/ML (5 ML VIAL) IV ONE (12:49)
--- NOTE | 2022-10-13 14:08 | P.PCN ---
Date of Procedure: 10/13/22 Preoperative Diagnosis: LLL pulmonary nodule Postoperative Diagnosis: LLL pulmonary nodule Procedure(s) Performed: flexible bronchoscopy, lower airway inspection navigation bronchoscopy and transbronchial biopsy, brushing , TBNA and bronchioloalveolar lavage of the left lower lobe pulmonay nodule endoscopic ultrasound (EBUS) transbronchial needle aspirate of station 7 lymph nodes Anesthesia: CAROLINAA Surgeon: Salma Raygoza Estimated Blood Loss (ml): 0 Pathology: other Condition: stable Disposition: same day Operative Findings: The patient had a preoperative computed tomography scan of the chest using the Veran protocol. The CAT scan images were reviewed. The left lower lobe opacity was identified it was mapped appropriately. The CAT scan images are uploaded into a USB and then into the [employer] Navigation tower. An airway inspection was done using the flexible bronchoscope. The mid and distal trachea was seen and it was normal and then the roselyn appears normal then the scope advanced to the left main and BOBBY LB1-LB3 were seen and no endobronchial lesions were seen then the scope advanced to the lingula and the LB4 and LB5 were seen and no endobronchial lesions were seen the scope retracted and advanced to the left lower lobes LB6 to LB12 were seen one by one and there was significant narrowing of the superior segment of the left lower lobe bronchus with possibility some endobronchial tumor growing within the airway. Following that the scope was retracted back to the roselyn and advanced to the Right main and RUL RB1 and RB2 and RB3 were seen one by one and no endobronchial lesions were seen the scope. The bronchoscope was then retracted and advanced to the BI and RML RB4 and RB5 were seen and no endobronchial lesions were seen then it was retracted and advanced to the RLL RB6 to RB12 were seen one by one and no endobronchial lesions. Navigation bronchoscopy was performed. The main roselyn and the secondary roselyn on the left were used as the reference points and appropriate calibration was done. Following that, using a navigation guidance , the bronchoscope was advanced to the left lower lobe anterior segment and various transbronchial biopsies, transbronchial brushings and transbronchial needle aspirate of of the left lower lobe nodule was done without any complications. I also performed a bronchioloalveolar lavage of the left lower lobe ant segment and a total of 80 mL of fluid was infused and 15 mL was suctioned back and this will be sent for cytology and microbial cultures. Then EBUS was used and the lymph nodes were examined. Direct measurement of the mediastinal lymph nodes revealed a 10 mm station 7 lymph node, the rest of the examination was negative. I performed transbronchial needle aspirate of station 7 and a total of 2 passes .FNA was done without major bleeding and the scope was removed and taken out in total the patient was send to the floor in stable condition. At the completion of the procedure, the bronchoscope was removed and the patient was transferred to recovery in stable condition. Chest x-rays to follow to rule out pneumothorax.
[2022-10-13 14:20] VITALS: TEMP 97
[2022-10-13 14:45] VITALS: RESP 16
--- NOTE | 2022-10-13 14:58 | XR ---
EXAMINATION TYPE: XR chest 1V portable DATE OF EXAM: 10/13/2022 Comparison: CT earlier today Clinical History: 57-year-old female navigational bronchoscopy Findings: Heart normal size. Aorta within normal limits. Hyperinflation with mild emphysematous changes. New ai rspace disease throughout the left lower lung. There is a new [id number] sized left-sided apic al pneumothorax measuring 3.4 cm.. Impression: 1. New small to moderate-sized left apical pneumothorax estimated at 20%. 2. New airspace disease at the left base could represent progressive infiltrate or pulmonary contusio n.
[2022-10-13 16:07] VITALS: PULSE 72
[2022-10-13 16:27] VITALS: BP 128/81
--- NOTE | 2022-10-13 16:29 | P.PN ---
Progress Note - Text Progress Note Date: 10/13/22 the patient underwent the procedure while in the rest or difficulties or any pulmonary complications. Nevertheless, the chest x-ray showed a 20% pneumothorax on the left. No evidence of any tension pneumothorax. The patient is very asymptomatic. Pulse ox is in order of 99% on room air oxygen. She wanted to go home. I think is reasonable. I repeated the chest x-ray within 2 hours and is nontender worsening of the left-sided pneumothorax. I asked the patient to come back to the hospital should there be any new symptoms. Otherwise, she is going to see me in the office at 8:30 AM in the morning for repeat chest x-ray. No reported chest tube insertion at this point in time.we'll discharge this patient home accordingly. She lives a few minutes away from the hospital. She will contact us back or presented emergency if she feels any new symptoms.
--- NOTE | 2022-10-13 17:03 | XR ---
EXAMINATION TYPE: XR chest 1V DATE OF EXAM: 10/13/2022 COMPARISON: Chest x-ray earlier today. HISTORY: Postbronchoscopy with known pneumothorax. TECHNIQUE: Single AP portable frontal upright view of the chest is obtained. FINDINGS: There is stable small to moderate size left upper lung pneumothorax estimated near 20%. Pe rsistent and stable left lower lung increased opacity. New patchy right basilar opacity favors atelec tasis. No mediastinal shift. The cardiac silhouette size is stable and within normal limits. The os seous structures are intact. IMPRESSION: As above.
[2022-10-14 02:00] LABS: Appearance,BF Bloody
== END 2022-10-13 16:42 | disposition home or self-care (01) ==
LOC: ORWHC2ENDO 10:36
PROVIDERS: ATTEND Internal Medicine Critical Care Medicine
DX: R91.1 Solitary pulmonary nodule (principal)
CPT/HCPCS: 88104; 88108; 88305; 89050; 87252; 87070; 87205; 87116; 87102; 87206; 71045; 71250; 31629; 31625; 31623; 31624; 31627; 31653; J2250; J0330; J2710; J2405; J3010; J1100; J2704; J2001

== ENCOUNTER → 2022-12-12 | Outpatient (CLI) | payer MEDICARE, OTHER ==
--- NOTE | 2022-12-12 22:08 | US ---
EXAMINATION TYPE: US venous doppler duplex LE DATE OF EXAM: 12/12/2022 4:34 PM COMPARISON: US 2012 CLINICAL HISTORY: I82.402 POSSIBLE DVT LEFT LEG. Left leg swelling x couple weeks, patient taking asp irin SIDE PERFORMED: Bilateral TECHNIQUE: The lower extremity deep venous system is examined utilizing real time linear array sonog evelia with graded compression, doppler sonography and color-flow sonography. VESSELS IMAGED: Common Femoral Vein Deep Femoral Vein Greater Saphenous Vein * Femoral Vein Popliteal Vein Small Saphenous Vein * Proximal Calf Veins (* superficial vessels) Right Leg: Appears negative for DVT Left Leg: Appears negative for DVT Grayscale, color doppler, spectral doppler imaging performed of the deep veins of the bilateral lower extremities. There is normal flow, compressibility, vascular waveforms. IMPRESSION: No ultrasound evidence for acute DVT in either lower extremity.
== END | disposition home or self-care (01) ==
LOC: RADUSWWP 15:43
PROVIDERS: ATTEND Family Medicine
DX: I82.402 Acute embolism and thrombosis of unspecified deep veins of left lower extremity (principal)
CPT/HCPCS: 93970

== ENCOUNTER → 2023-04-12 | Outpatient (CLI) | payer MEDICARE, OTHER ==
--- NOTE | 2023-04-16 19:54 | CT ---
EXAMINATION TYPE: CT chest w con DATE OF EXAM: 04/12/2023 COMPARISON: Radiograph 10/14/[address] 09/15/2022 HISTORY: 50 year-old female R91.1, pulmonary nodule. TECHNIQUE: Contiguous axial scanning of the chest after the administration of 100 mL of Isovue 300. Coronal/sagittal reconstructions performed. CT DLP: 154.20mGycm. Automatic exposure control utilized for a dose reduction. FINDINGS: Heart is normal size without pericardial effusion. Aorta normal caliber with mild atherosclerotic arch calcifications and commensurate vessel branching anatomy. Borderline caliber main right and left pulmonary arteries up to 2.5 cm each suggesting possible under lying pulmonary hypertension. No thoracic lymphadenopathy by CT size criteria. There is moderate centrilobular emphysema. Enlarging spiculated nodule right upper lobe currently measuring 9 mm versus 5 mm on 08/26/2022. Redemonstrated thick-walled cavitary nodule lateral left lower lobe measuring 3.8 cm versus 2.7 cm, p reviously. No consolidation or pleural effusion. Prominent dependent atelectasis in the posterior lower lobes. Visualized upper abdomen shows no gross adenopathy. Bones: Severe endplate deformity with anterior wedging of L1 remains unchanged back to 08/26/2022 comp atible with a benign etiology. Moderate degenerative disc disease lower thoracic spine. IMPRESSION: 1. Enlarging thick-walled cavitary mass lateral left base highly suspicious for lung cancer. Currentl y 3.8 cm versus 2.7 cm, previously. Appropriate pulmonary medicine follow-up recommended. 2. Enlarging small spiculated nodule right upper lobe currently 9 mm versus 5 mm, previously. A synch ronous primary neoplasm should be excluded. 3. COPD with moderate emphysema.
== END | disposition home or self-care (01) ==
LOC: RADCTMAIN 12:44
PROVIDERS: ATTEND Family Medicine
DX: J43.2 Centrilobular emphysema (principal); R91.1 Solitary pulmonary nodule
CPT/HCPCS: 71260; Q9967

== ENCOUNTER 2023-05-11 11:01 | Day surgery (SDC) | payer MEDICARE, OTHER ==
[~2023-05-11 11:01] MED LIST changes: -LIDOCAINE VISCOUS 300 MG/15 ML CUP MUCOUS MEM ONE; -SODIUM CHLORIDE 0.9% 1,000 ML IV SCH
--- NOTE | 2023-05-11 11:31 | CT ---
EXAMINATION TYPE: CT chest wo con CT DLP: 491 mGycm, Automated exposure control for dose reduction was used. DATE OF EXAM: 05/11/2023 11:[address] chest 04/12/2023 CLINICAL INDICATION:Female, 58 years old with history of ION; PHH, pre-op bronch TECHNIQUE: Multiple axial images were obtained through the chest without IV contrast. Lack of IV or o ral contrast limits evaluation of solid and hollow organ viscera. . Coronal and sagittal reformats re viewed. For preop bronchoscopy. FINDINGS: LUNGS/ PLEURA: No pleural effusion, pneumothorax, focal consolidation. Mild to moderate centrilobular emphysematous changes. Redemonstration of thick-walled cavitary mass within the peripheral left low er lobe measuring 3.9 x 2.9 cm. Redemonstration of spiculated 0.9 cm nodule within the right upper lo be. No new pulmonary nodules. AIRWAY: Patent and unremarkable.. HEART: Size within normal limits. No pericardial effusion. MEDIASTINUM: No gross evidence of adenopathy. VASCULATURE: No aortic aneurysm. MUSCULOSKELETAL: No acute osseous abnormalities. Mild to moderate degenerative changes of the thoraco lumbar spine. Severe endplate deformity with anterior wedging of L1 is unchanged. SOFT TISSUES/LYMPH NODES: Unremarkable. LOWER NECK: Monge thyroid gland.. UPPER ABDOMEN: No significant findings. IMPRESSION: 1. Redemonstration of thick-walled cavitary mass in the lateral left lower lobe measuring up to 3.9 cm. Additional stable 0.9 cm spiculated nodule within the right upper lobe. These again are concernin g for primary lung malignancy/metastasis. 2. Mild to moderate COPD changes.
[2023-05-11 11:37] VITALS: TEMP 97.3
[2023-05-11] MEDS ORDERED: NEOSTIGMINE 1 MG/ML 10 ML VIAL ONE (12:49)
[2023-05-11] MEDS ORDERED: DEXAMETHASONE SOD PHOSPHATE 4 MG/ML 1 ML VIAL ONE (12:49)
[2023-05-11] MEDS ORDERED: ROCURONIUM 10 MG/ML (5 ML VIAL) IV ONE (12:49)
[2023-05-11] MEDS ORDERED: PHENYLEPHRINE-0.9% NACL SYG 1,000 MCG/10 ML SYRINGE ONE (12:49)
[2023-05-11] MEDS ORDERED: MIDAZOLAM 2 MG/2 ML VIAL ONE (12:49)
[2023-05-11] MEDS ORDERED: SUCCINYLCHOLINE CHLORIDE 200 MG/10 ML VIAL IV ONE (12:49)
[2023-05-11] MEDS ORDERED: GLYCOPYRROLATE 0.2 MG/ML 2 ML VIAL ONE (12:49)
[2023-05-11] MEDS ORDERED: LIDOCAINE 2% INJ 20 MG/ML (2 ML VIAL) ONE (12:49)
[2023-05-11] MEDS ORDERED: PROPOFOL 10 MG/ML 20 ML VIAL IV ONE (12:49)
[2023-05-11] MEDS ORDERED: ONDANSETRON 4 MG/2 ML VIAL ONE (12:49)
--- NOTE | 2023-05-11 14:05 | P.PCN ---
Date of Procedure: 05/11/23 Operative Findings: Preoperative Diagnosis: Left lower lobe cavitating mass Right upper lobe pulmonary nodule Postoperative Diagnosis: Right upper lobe nodule, cavitating mass Right upper lobe pulmonary nodule Procedure(s) Performed: Flexible bronchoscopy Robotic-assisted bronchoscopy and addition to radial ultrasound evaluation of the pulmonary nodule Robotic-assisted transbronchial needle aspirate, transbronchial biopsies, transbronchial brushing of left lower lobe cavitating mass in addition to a bronchioloalveolar lavage Robotic-assisted transbronchial needle aspirate, transbronchial biopsies, transbronchial brushing of the right upper lobe pulmonary nodule in addition to a bronchioloalveolar lavage Anesthesia: JARED Surgeon: Salma Raygoza Estimated Blood Loss (ml): 0 Pathology: other Condition: stable Disposition: same day Operative Findings: A physical exam was performed. Informed consent was obtained from the patient after explaining all the risks (pneumothorax, life threatening bleeding, infection and adverse effects due to medications), benefits and alternatives to the procedure which the patient appeared to understand and so stated. The patient was connected to the monitoring devices. General anesthesia was induced and the patient was intubated by anesthesia. A final timeout was performed and the procedure confirmed by the attending staff bronchoscopist. The bronchoscope was inserted and the airway examined. The flexible bronchoscope was removed and the robotic bronchoscope was inserted. Registration was completed. I next guided the robotic bronchoscope using the navigation system into the left lower lobe lateral segment. Once in proper position, the bronchoscope was frozen. The radial EBUS probe was placed through the bronchoscope and confirmed abnormal u/s images vs normal lung. A needle was placed through the working channel and under fluoroscopic guidance, we sampled the area thought to have the mass twice. We then used a cloud biopsy pattern with ultrasound confirmation for 2 additional passes with the needle. U/S evaluation was then used to reconfirm location. Forceps were next introduced through working channel and extended the appropriate distance and 3 transbronchial biopsies were performed using fluoroscopic guidance. The u/s probe was then reinserted to confirm location. When confirmed this process was repeated for a total of 6 transbronchial biopsies. After reassessment with EBUS, a brush was placed through the extendable working channel for 1 pass with fluoroscopic guidance. U/S evaluation was then used to confirm location. 40ml of saline was then instilled into the area of the lesion. The robotic bronchoscope was removed and the airway inspected with a flexible bronchoscope and 10 ml of effluent from the BAL was collected. The aspirate was bloody and ultimately declotted and based on that, the sample was discarded. Subsequently, the robotic bronchoscope was directed to the apical segment of the right upper lobe. Ultrasound evaluation confirmed location. Forceps was introduced and transbronchial biopsies of the right upper lobe nodule was done, a total of 6 transbronchial needle aspirate, transbronchial biopsies and transbronchial brushings were obtained. Also, a bronchial lavage the right apex was done with a total of 20 mL of fluid was infused and 10 mL was aspirated. Fluoroscopic check for pneumothorax was negative upon completion of the procedure. There was 0 ml blood loss with the procedure. Flexible left lower lobe cavitating mass, right upper lobe pulmonary nodule bronchoscope was inserted and regular suctioning was done. At the completion of the procedure, no residual secretions or bloody material within the airway. The bronchoscope was removed. The patient was extubated. FINDINGS: 1.The airways appeared normal 2 Successful navigation, ultrasonographic identification, and biopsies of right upper lobe pulmonary nodule, right upper lobe nodular consolidation 3.The the radial ultrasound view was (Concentric/Eccentric)}. RECOMMENDATIONS: Await pathology and cytology results The referring physician will be alerted to the results when available. The patient was advised to follow up with the referring physician with the biopsy results Patient will be called with results.
[2023-05-11] MEDS ORDERED: LACTATED RINGERS 1,000 ML IV SCH (14:22)
[2023-05-11] MEDS ORDERED: MIDAZOLAM 2 MG/2 ML VIAL IV PRN (14:22)
[2023-05-11] MEDS ORDERED: LIDOCAINE 1% (10MG/ML) FOR IV START INTRADERMA PRN (14:22)
[2023-05-11] MEDS ORDERED: HYDROmorphone 0.5 MG/0.5 ML SYRINGE IVP PRN (14:22)
[2023-05-11] MEDS ORDERED: ONDANSETRON 4 MG/2 ML VIAL IVP ONE (14:22)
[2023-05-11] MEDS ORDERED: DEXAMETHASONE SOD PHOSPHATE 4 MG/ML 1 ML VIAL IV ONE (14:22)
--- NOTE | 2023-05-11 14:26 | FL ---
EXAMINATION TYPE: FL bronchoscopy DATE OF EXAM: 05/11/2023 CLINICAL HISTORY: BRONCHOSCOPY TECHNIQUE: Fluoroscopy. COMPARISON: None. FINDINGS: Fluoroscopic guidance was provided during procedure performed by Dr. Raygoza. A total of 2:24 fl time of fluoroscopic time was utilized during the procedure and 3 spot images was acquired. Total dose area product (DAP) in uGy*m?, mGy*cm? (or similar: 8.2441 DAP . IMPRESSION: As Above.
[2023-05-11 14:29] VITALS: RESP 16
--- NOTE | 2023-05-11 15:20 | XR ---
EXAMINATION TYPE: XR chest 1V portable DATE OF EXAM: 05/11/2023 3:11 PM COMPARISON: Chest radiograph 10/13/2022, CT chest 05/11/2023 TECHNIQUE: XR chest 1V portable Portable AP radiograph of the chest. CLINICAL INDICATION:Female, 58 years old with history of Post Bronchoscopy with biopsy; FINDINGS: Lungs/Pleura: No pleural effusion or pneumothorax. Left lower lobe consolidation corresponds to biops y lesion. Pulmonary vascularity: Unremarkable. Heart/mediastinum: Cardiomediastinal silhouette is unremarkable. Musculoskeletal: No acute osseous pathology. IMPRESSION: Status post bronchoscopy with biopsy of left lower lobe lesion. No pneumothorax.
[2023-05-11 15:25] VITALS: BP 145/89; PULSE 79
== END 2023-05-11 15:42 | disposition home or self-care (01) ==
LOC: ORWHC2ENDO 11:01
PROVIDERS: ATTEND Internal Medicine Critical Care Medicine
DX: J98.4 Other disorders of lung (principal); J44.9 Chronic obstructive pulmonary disease, unspecified; F20.9 Schizophrenia, unspecified; F17.200 Nicotine dependence, unspecified, uncomplicated; Z79.51 Long term (current) use of inhaled steroids; Z79.899 Other long term (current) drug therapy
CPT/HCPCS: 88108; 88305; 88173; 88342; 88341; 71045; 71250; 31625; 31633; 31623; 31624; J2250; J0330; J1100; J2710; J2405; J2704; J2001; J2371; S2900

== ENCOUNTER → 2023-06-03 | Outpatient (CLI) | payer MEDICARE, OTHER ==
--- NOTE | 2023-06-08 12:09 | PE ---
EXAMINATION TYPE: PET CT fusion skull to thigh DATE OF EXAM: 06/03/2023 COMPARISON: CT chest 05/11/2023 Prior PET/CT: 09/15/2022 HISTORY: Adenocarcinoma of the lung TECHNIQUE: Following the intravenous administration of 13.73 mCi of F-18 FDG, whole body images are performed from the skull base to the midthigh. Images are reviewed on the computer in the coronal, a xial, and sagittal planes. Reconstructed rotating images are created on independent workstation and reviewed on the computer. A localization and attenuation correction CT is performed in conjunction with the PET scan. DLP: 386.27 mGycm SCAN: Initial Blood glucose: 101 mg/dL Average Mediastinum SUV: 1.32 Average Liver SUV: 1.78 FINDINGS: NECK: No abnormal uptake THORAX: There is a focus of radiotracer within the right apical nodule with an SUV of 2.5. This area is suspicious for metastasis. There is marked increased uptake within the posterior lateral left lung base mass with an SUV of 5.57 compatible with neoplasm. Primary metastatic disease could be considered. ABDOMEN: No abnormal uptake PELVIS: No abnormal uptake OSSEOUS STRUCTURES: No abnormal uptake LOCALIZATION CT: Right apical nodule remains present, image 68 left posterior lateral lung base mass remains present. This appears cavitary and enlarging. Current measurements are 3.2 x 4.3 cm. Previous measurements 2.9 x 3.9 cm COMPARISON: Enlarging left posterior lateral cavitary lesion IMPRESSION: 1. Enlarging cavitary lesion left posterior lateral lung base has elevated SUV compatible with neopla sm. 2. Uptake increased within the right apical nodule suspicious for metastatic lesion. 3. No suspicious uptake below the level of the diaphragm
== END | disposition home or self-care (01) ==
LOC: RADPETMAIN 11:25
PROVIDERS: ATTEND Internal Medicine Critical Care Medicine
DX: C34.32 Malignant neoplasm of lower lobe, left bronchus or lung (principal); R91.1 Solitary pulmonary nodule
CPT/HCPCS: 78815; A9552

== ENCOUNTER → 2023-06-23 | Outpatient (CLI) | payer MEDICARE, OTHER ==
--- NOTE | 2023-06-27 08:24 | CT ---
EXAMINATION TYPE: CT brain wo/w con DATE OF EXAM: 06/23/2023 COMPARISON: None HISTORY: CT brain with and without for malignancy of lung Ca. CT DLP: 2249.3mGycm CONTRAST: CT scan of the head is performed without and with IV Contrast, patient injected with 100 cc mL of Iso margo 300. Unenhanced followed by contrast enhanced CT of the brain is submitted for evaluation. The ventricles are midline. There is no evidence for intracranial hemorrhage or extra-axial collection. No mass e ffects are identified. Visualized bony calvarium is intact. Contrast is administered and no enhanci ng lesions are detected. No pathologic enhancement is identified. If symptoms persist consider MRI. IMPRESSION: No enhancing lesions identified at this time.
== END | disposition home or self-care (01) ==
LOC: RADCTMAIN 14:58
PROVIDERS: ATTEND Radiology Radiation Oncology
DX: C34.11 Malignant neoplasm of upper lobe, right bronchus or lung (principal)
CPT/HCPCS: 70470; Q9967

== ENCOUNTER → 2024-01-08 | Outpatient (CLI) | payer MEDICARE, OTHER ==
--- NOTE | 2024-01-08 20:06 | CT ---
EXAMINATION TYPE: CT chest w con DATE OF EXAM: 01/08/2024 COMPARISON: 05/11/2023 HISTORY: Current smoker, bilateral lung Ca. Chemo/radiation 10/11 CT DLP: 258.6 mGycm Automated exposure control for dose reduction was used. TECHNIQUE: CT scan of the chest is performed with IV Contrast, patient injected with 100 cc mL of Isovue 300. M IP Images are created on CT scanner and reviewed. 3D reconstructed images are created on an [employer] workstation and reviewed. FINDINGS: There are moderate emphysematous changes. The spiculated 9 mm mass in right upper lobe has decreased in size to 6.9 mm. Left lower lobe 3.8 cm x 2.9 cm mass with central necrosis has nearly completely resolved. There are a few scattered interstitial densities indicating interstitial scarring. No new lesions are seen. There is no airspace consolidation. There is no pleural effusion or pneumothorax. The great vessels chest are normal as no mediastinal, hilar or axillary adenopathy. Limited scanning through the upper abdomen reveals no gross abnormality. No focal osseous lesions are seen. IMPRESSION: 1. Interval decrease in the right upper lobe pulmonary as described above. 2. Mild focal interstitial changes in the left lung base in the location where there was a 3.8 cm ne crotic mass. 3. no new lesions. 4. Stable moderate emphysematous changes.
== END | disposition home or self-care (01) ==
LOC: RADCTMAIN 16:21
PROVIDERS: ATTEND Internal Medicine Critical Care Medicine
DX: C34.90 Malignant neoplasm of unspecified part of unspecified bronchus or lung (principal); F17.210 Nicotine dependence, cigarettes, uncomplicated
CPT/HCPCS: 71260; Q9967

== ENCOUNTER 2025-03-26 14:07 | Emergency (ER) | payer MEDICARE, OTHER ==
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
[2025-03-26 15:45] VITALS: TEMP 97.7
[2025-03-26 16:39] LABS: Barbiturate Screen,Urine Not Detected (NotDetected); Benzodiazepines Screen,Urine Not Detected (NotDetected); Opiate Screen,Urine Not Detected (NotDetected); Oxycodone Screen, Urine Not Detected (NotDetected); Phencyclidine Screen,Urine Not Detected (NotDetected); Tricyclic Antidepressant,Urine Not Detected (NotDetected); Urn Cannabinoid Scrn Not Detected (NotDetected)
[2025-03-26 18:27] VITALS: BP 141/94; PULSE 81; RESP 16
== END 2025-03-26 21:09 | disposition home or self-care (01) ==
LOC: EC 14:07
DX: F25.9 Schizoaffective disorder, unspecified (principal); Z87.891 Personal history of nicotine dependence
CPT/HCPCS: 80306; 82075; 99285